=== PATIENT | male | born 1965 | race Caucasian/White ===

== ENCOUNTER → 2016-07-23 | Outpatient (CLI) | payer OTHER ==
[~2016-07-23] MED LIST: ACYCLOVIR400 MG PO; AUGMENTIN 875-1 EACH PO; COLACE 100MG C100 MG PO; DEXAMETHASONE 44 MG PO; ENSURE HIGH PR237 ML PO; ETODOLAC500 MG PO; HYDROCODON-ACE1 EAC2 PO; JUVEN PACKET1 EACH PO; LOPRESSOR 25 MG25 MG PO; LORTAB 5-325 M1 EACH PO; MIRALAX17 GM PO; MORPHINE SULFAT60 M1 PO; MULTIVITAMINS1 EAC1 PO; NEURONTIN 300300 MG PO; RESTORIL15 MG PO; ROBAXIN 750 MG750 MG PO; SENOKOT-S TABL1 EACH PO
== END ==
LOC: KOH-I 15:29
DX: M25.512 Pain in left shoulder (principal)
CPT/HCPCS: 73030

== ENCOUNTER 2016-08-09 09:03 | Emergency (ER) | payer OTHER ==
[2016-08-09 09:59] LABS: HEMOGLOBIN 12.7 gm/dl (14.0-17.5); RED BLOOD COUNT 4.12 M/UL (4.20-5.50); WHITE BLOOD COUNT 6.7 K/UL (4.5-11.0)
[2016-08-09 10:23] LABS: BUN/CREATININE RATIO 16 (0-10)
[2016-10-08] MEDS ORDERED: MORPHINE SULFAT60 M1 PO (20:33)
[2016-10-08] MEDS ORDERED: HYDROCODON-ACE1 EAC2 PO (20:34)
[2016-10-08] MEDS ORDERED: NEURONTIN 300300 MG PO (20:34)
[2016-10-09] MEDS ORDERED: COLACE 100MG C100 MG PO (13:44)
[2016-10-09] MEDS ORDERED: ACYCLOVIR400 MG PO (13:44)
[2016-10-09] MEDS ORDERED: DEXAMETHASONE 44 MG PO (13:55)
[2016-10-10] MEDS ORDERED: SENOKOT-S TABL1 EACH PO (14:51)
[2016-10-10] MEDS ORDERED: MIRALAX17 GM PO (14:52)
[2016-10-12] MEDS ORDERED: MULTIVITAMINS1 EAC1 PO (08:16)
[2016-11-11] MEDS ORDERED: COLACE 100MG C100 MG PO (21:11)
[2016-11-19] MEDS ORDERED: ENSURE HIGH PR237 ML PO (18:13)
[2016-11-19] MEDS ORDERED: JUVEN PACKET1 EACH PO (18:14)
[2016-11-19] MEDS ORDERED: LOPRESSOR 25 MG25 MG PO (18:21)
== END 2016-08-09 12:38 | disposition home or self-care (01) ==
LOC: ER1 09:03
PROVIDERS: Family Medicine
DX: S29.012A Strain of muscle and tendon of back wall of thorax, initial encounter (principal); R07.89 Other chest pain; X50.0XXA Overexertion from strenuous movement or load, initial encounter; Y99.8 Other external cause status
CPT/HCPCS: 36415; 71020; 80053; 82550; 82553; 83874; 84484; 85025; 93005; 99284

== ENCOUNTER 2016-08-22 09:44 | Emergency (ER) | payer OTHER ==
[2016-08-22 13:20] LABS: HEMOGLOBIN 12.8 gm/dl (14.0-17.5); RED BLOOD COUNT 4.12 M/UL (4.20-5.50); WHITE BLOOD COUNT 6.2 K/UL (4.5-11.0)
[2016-08-22 14:10] LABS: BUN/CREATININE RATIO 19 (0-10)
[2016-10-08] MEDS ORDERED: MORPHINE SULFAT60 M1 PO (20:33)
[2016-10-08] MEDS ORDERED: NEURONTIN 300300 MG PO (20:34)
[2016-10-08] MEDS ORDERED: HYDROCODON-ACE1 EAC2 PO (20:34)
[2016-10-09] MEDS ORDERED: COLACE 100MG C100 MG PO (13:44)
[2016-10-09] MEDS ORDERED: ACYCLOVIR400 MG PO (13:44)
[2016-10-09] MEDS ORDERED: DEXAMETHASONE 44 MG PO (13:55)
[2016-10-10] MEDS ORDERED: SENOKOT-S TABL1 EACH PO (14:51)
[2016-10-10] MEDS ORDERED: MIRALAX17 GM PO (14:52)
[2016-10-12] MEDS ORDERED: MULTIVITAMINS1 EAC1 PO (08:16)
[2016-11-11] MEDS ORDERED: COLACE 100MG C100 MG PO (21:11)
[2016-11-19] MEDS ORDERED: ENSURE HIGH PR237 ML PO (18:13)
[2016-11-19] MEDS ORDERED: JUVEN PACKET1 EACH PO (18:14)
[2016-11-19] MEDS ORDERED: LOPRESSOR 25 MG25 MG PO (18:21)
== END 2016-08-22 16:00 | disposition home or self-care (01) ==
LOC: ER1 09:44
PROVIDERS: Physician Assistant Medical
DX: K80.80 Other cholelithiasis without obstruction (principal)
CPT/HCPCS: 36415; 80053; 81001; 82150; 83605; 83690; 85025; 86140; 87086; 96360; 96361; 99284; J2270; J2405; J7030; J7050; Q9962

== ENCOUNTER 2016-09-02 16:13 | Inpatient (IN) | payer OTHER ==
[~2016-09-02] VITALS: Ht 175.3 cm; Wt 117.8 kg
[2016-09-02 18:04] LABS: HEMOGLOBIN 13.4 gm/dl (14.0-17.5); RED BLOOD COUNT 4.3 M/UL (4.20-5.50); WHITE BLOOD COUNT 7.7 K/UL (4.5-11.0)
[2016-09-02 18:27] LABS: BUN/CREATININE RATIO 18 (0-10)
[2016-09-03] MEDS ORDERED: ETODOLAC500 MG PO (02:33)
[2016-09-03] MEDS ORDERED: ROBAXIN 750 MG750 MG PO (02:33)
[2016-09-03 04:39] LABS: HEMOGLOBIN 12.5 gm/dl (14.0-17.5); RED BLOOD COUNT 4.07 M/UL (4.20-5.50); WHITE BLOOD COUNT 7.9 K/UL (4.5-11.0)
[2016-09-03 04:49] LABS: BUN/CREATININE RATIO 17 (0-10)
[2016-09-03 16:50] LABS: BUN/CREATININE RATIO 18 (0-10)
[2016-09-04] MEDS ORDERED: LORTAB 5-325 M1 EACH PO (15:08)
[2016-09-04 16:31] LABS: BUN/CREATININE RATIO 15 (0-10)
[2016-09-05 08:18] LABS: BUN/CREATININE RATIO 26 (0-10)
[2016-09-05] MEDS ORDERED: RESTORIL15 MG PO (09:48)
[2016-10-08] MEDS ORDERED: MORPHINE SULFAT60 M1 PO (20:33)
[2016-10-08] MEDS ORDERED: HYDROCODON-ACE1 EAC2 PO (20:34)
[2016-10-08] MEDS ORDERED: NEURONTIN 300300 MG PO (20:34)
[2016-10-09] MEDS ORDERED: ACYCLOVIR400 MG PO (13:44)
[2016-10-09] MEDS ORDERED: COLACE 100MG C100 MG PO (13:44)
[2016-10-09] MEDS ORDERED: DEXAMETHASONE 44 MG PO (13:55)
[2016-10-10] MEDS ORDERED: SENOKOT-S TABL1 EACH PO (14:51)
[2016-10-10] MEDS ORDERED: MIRALAX17 GM PO (14:52)
[2016-10-12] MEDS ORDERED: MULTIVITAMINS1 EAC1 PO (08:16)
[2016-11-11] MEDS ORDERED: COLACE 100MG C100 MG PO (21:11)
[2016-11-19] MEDS ORDERED: ENSURE HIGH PR237 ML PO (18:13)
[2016-11-19] MEDS ORDERED: JUVEN PACKET1 EACH PO (18:14)
[2016-11-19] MEDS ORDERED: LOPRESSOR 25 MG25 MG PO (18:21)
== END 2016-09-05 10:10 | disposition home or self-care (01) | DRG 641 ==
LOC: ER1 16:13 → MED SURG 4 19:20 → ZEROF 19:20 → MED SURG 4 21:45
PROVIDERS: Family Medicine; ADMIT Internal Medicine
DX: E83.52 Hypercalcemia (principal); C90.00 Multiple myeloma not having achieved remission; G89.3 Neoplasm related pain (acute) (chronic); K21.9 Gastro-esophageal reflux disease without esophagitis; E66.9 Obesity, unspecified; Z68.38 Body mass index [BMI] 38.0-38.9, adult; Z92.3 Personal history of irradiation; Z87.891 Personal history of nicotine dependence; Z79.1 Long term (current) use of non-steroidal anti-inflammatories (NSAID); Z79.899 Other long term (current) drug therapy; Z82.49 Family history of ischemic heart disease and other diseases of the circulatory system
CPT/HCPCS: 36415; 72141; 72146; 76705; 80048; 80053; 81001; 82330; 83735; 83970; 84100; 85025; 94664; 96374; 99284; C9113; J1650; J1940; J2270; J3489; J7030; J7050

== ENCOUNTER 2016-11-25 12:14 | Inpatient (IN) | payer OTHER ==
[~2016-11-25] VITALS: Ht 188 cm; Wt 116.1 kg
[~2016-11-25 12:14] MED LIST changes: -AUGMENTIN 875-1 EACH PO
[2016-11-25 14:50] LABS: HEMOGLOBIN 8.7 gm/dl (14.0-17.5); RED BLOOD COUNT 2.94 M/UL (4.20-5.50)
[2016-11-25] MEDS ORDERED: DEXAMETHASONE 44 MG PO (23:00)
[2016-11-26 04:11] LABS: HEMOGLOBIN 7.5 gm/dl (14.0-17.5)
[2016-11-26 04:16] LABS: RED BLOOD COUNT 2.56 M/UL (4.20-5.50)
[2016-11-27 05:01] LABS: WHITE BLOOD COUNT 4.7 K/UL (4.5-11.0)
[2016-11-27 05:03] LABS: RED BLOOD COUNT 2.23 M/UL (4.20-5.50)
[2016-11-27 05:04] LABS: HEMOGLOBIN 6.8 gm/dl (14.0-17.5)
[2016-11-28 01:28] LABS: HEMOGLOBIN 8.5 gm/dl (14.0-17.5)
[2016-11-28 04:17] LABS: HEMOGLOBIN 8.9 gm/dl (14.0-17.5); WHITE BLOOD COUNT 5.3 K/UL (4.5-11.0)
[2016-11-28 04:21] LABS: RED BLOOD COUNT 3.01 M/UL (4.20-5.50)
[2016-11-28 04:31] LABS: BUN/CREATININE RATIO 12 (0-10)
[2016-11-28] MEDS ORDERED: AUGMENTIN 875-1 EACH PO (14:34)
== END 2016-11-28 15:49 | disposition home or self-care (01) | DRG 177 ==
LOC: ER1 12:14 → PROG CARE 17:00 → ZEROF 17:00 → PROG CARE 17:30
PROVIDERS: Emergency Medicine; Internal Medicine; ADMIT Internal Medicine Infectious Disease
PROC: 30233N1 Transfusion of Nonautologous Red Blood Cells into Peripheral Vein, Percutaneous Approach (ICD-10-PCS; principal; 2016-11-27)
DX: J69.0 Pneumonitis due to inhalation of food and vomit (principal); G93.40 Encephalopathy, unspecified; L89.314 Pressure ulcer of right buttock, stage 4; L89.323 Pressure ulcer of left buttock, stage 3; N17.9 Acute kidney failure, unspecified; E87.0 Hyperosmolality and hypernatremia; C90.00 Multiple myeloma not having achieved remission; Z92.21 Personal history of antineoplastic chemotherapy; R53.83 Other fatigue
CPT/HCPCS: 36415; 70450; 71010; 80048; 80053; 81001; 82140; 83605; 83690; 83880; 84484; 85014; 85018; 85025; 85027; 85610; 85730; 86850; 86870; 86900; 86901; 86920; 86922; 87040; 93005; 94640; 94664; C9113; J1450; J1642; J1650; J2310; J2543; J3370; J7030; J7050; J7070; P9016